=== PATIENT | female | born 1985 | race Caucasian/White ===

== ENCOUNTER 2020-03-26 07:50 | Emergency (ER) | payer MEDICAID ==
[~2020-03-26] VITALS: Ht 177.8 cm; Wt 104.0 kg
[~2020-03-26 07:50] MED LIST: ALBU1.25 NEB; ALBU18HF HHN; OXYC-307 PO
--- NOTE | 2020-03-26 08:08 | NUR ---
pt ambulated back to room with a smooth and steady gait, NAD, RESP WNL, skin color WNL warm and dry, VSS, WCTM. Dr Herman at [facility] for eval and to discuss POC.
[2020-03-26 08:10] VITALS: BP 145/78
--- NOTE | 2020-03-26 08:20 | NUR ---
Patient given discharge instructions and they have confirmed that they understand the instructions. Patient ambulatory with steady gait. Denies additional questions at this time, confirms she will call dental offices and get an appt. NAD, RESP WNL, VSS.
== END 2020-03-26 08:20 ==
LOC: ED 08:10
DX: K02.9 Dental caries, unspecified (principal); J45.909 Unspecified asthma, uncomplicated; E66.9 Obesity, unspecified; Z68.32 Body mass index [BMI] 32.0-32.9, adult; Z79.899 Other long term (current) drug therapy; Z90.49 Acquired absence of other specified parts of digestive tract
CPT/HCPCS: 99282